=== PATIENT | male | born 1935 | race Caucasian/White ===

== ENCOUNTER 2017-02-14 16:21 | Inpatient (IN) | payer BC ==
--- NOTE | ~2017-02-14 | OP ---
Record Of Operation [facility] [address] [place]. [address] NAME: BAILEE RAYA JR : 37 STATUS : ADM IN PAT#: [id number] AGE: 81 ADM/REG DATE : 02/14/17 MR#: [id number] REPORT SERV DATE: 02/16/17 DICTATED BY: VAISHALI HARRISON DATE: 02/16/17 REPORT STATUS : Draft TRANSCRIBED BY: MODL DATE: 02/16/17 DATE OF PROCEDURE: 02/15/2017 PREOPERATIVE DIAGNOSIS: Gangrenous cholecystitis. POSTOPERATIVE DIAGNOSIS: Gangrenous cholecystitis. OPERATION: Laparoscopic cholecystectomy. SUMMARY OF FINDINGS: The patient had a very thickened, tense gallbladder that was very friable and appeared frankly gangrenous. He had multiple adhesions present throughout the abdomen. He had a very scarred-appearing liver, both right and left lobes. SUMMARY: After adequate general anesthesia, prep and drape, a supraumbilical incision was made, carried down through the skin and subcutaneous tissue, and down the peritoneal cavity. Under direct vision, blunt port was placed, and the camera was inserted. The previously noted findings were noted. A 2nd, 3rd, and 4th trocars were placed under direct vision in the epigastric area, midclavicular line, and right anterior axillary line. The lateral two ports were used to mobilize the gallbladder, which was noted to be very thickened. This was aspirated with approximately 60 mL to facilitate grasping. A 4th trocar was then placed inferiorly on the right to insert a fan to pull the transverse colon inferiorly for visualization. Careful dissection was used. The gallbladder appeared very necrotic and very thick walled. The cystic duct was identified. Two clips were placed proximally and one distally on the cystic duct. A small vessel was then clipped, two proximally, one distally, and these were divided. A small branch of the cystic artery was then clipped and the gallbladder was taken out retrograde fashion leaving the posterior wall of the gallbladder. This was noted to be very friable because of the cirrhosis apparent. The gallbladder was taken out in pieces and placed in an Endopouch. The gallbladder bed was then cauterized and Kiana was then placed over this. Good hemostasis was obtained. The lateral drain was placed out through a lateral trocar site and sutured in place with a 2-0 Prolene suture. The fan was removed. The other trocars removed under direct vision. No evidence of any bleeding. The gallbladder having been brought out through the fan site. The CO2 was removed from the abdomen. The fascia was closed at the supraumbilical site with a running 0 Vicryl suture. Subcutaneous tissue and skin closed in routine fashion. The patient tolerates the procedure well and was taken to the ICU in stable condition. CA/ENRIKE Vaishali Harrison M.D. / [id number] CC: Record Of Operation [address] [address] NAME: BAILEE RAYA : 37 STATUS : ADM IN [facility]#: [id number] AGE: 81 ADM/REG DATE : 02/14/17 MR#: [id number] REPORT SERV DATE: 02/16/17 DICTATED BY: VAISHALI HARRISON DATE: 02/16/17 REPORT STATUS : Draft TRANSCRIBED BY: ENRIKE DATE: 02/16/17 Tiff Craig M.D.
--- NOTE | ~2017-02-14 | CN ---
Consultation Report [facility] [address] [place]. [address] NAME: BAILEE RAYA JR : 37 STATUS : ADM IN PAT#: [id number] AGE: 81 ADM/REG DATE : 02/14/17 MR#: [id number] REPORT SERV DATE: 02/15/17 DICTATED BY: VALE MATTHEWS DATE: 02/15/17 REPORT STATUS : Draft TRANSCRIBED BY: MODAdonis DATE: 02/15/17 DATE OF CONSULTATION: HISTORY OF PRESENT ILLNESS: This is a 81-year-old patient who is status post laparoscopic cholecystectomy for acute cholecystitis and we are asked to see the patient for postoperative management. The patient was admitted to the hospital on after initially developed back pain that migrated to the right lower quadrant. He was advised to go to the emergency room for further evaluation. The patient has a known history of peripheral vascular disease as well as triple A repair, and is on Xarelto as an outpatient. After further evaluation by surgery the plan was to stabilize the patient and do a laparoscopic cholecystectomy if possible. He also had associated discomfort, nausea, fevers, and chills prior to admission, and temperature was a 102. Blood cultures thus far are negative. Urinalysis is unremarkable for acute UTI. The patient currently on Zosyn. He was cleared for surgery by [facility] Cardiology which was consulted secondary to intermittent SVT. After evaluation by Cardiology the patient discontinued his atenolol, started him on Coreg, and has ordered an echocardiogram that is pending. So the patient was able to undergo his laparoscopic cholecystectomy with an estimated blood loss of 75 mL. He is currently extubated on room air. Has peripheral IVs and is in no apparent distress. ALLERGIES: HE HAS NO KNOWN DRUG ALLERGIES. HOME MEDICATIONS: Include allopurinol, Tenormin, Tylenol, Lipitor, cholestyramine, TriCor, Glucophage, Prilosec, and Xarelto. PAST MEDICAL HISTORY: 1. Significant for peripheral vascular disease status post balloon angioplasty of the proximal left femoropopliteal graft 2 years ago. 2. 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 3. History of hypertension. 4. Hyperlipidemia. 5. Type 2 diabetes mellitus. FAMILY HISTORY: Significant for coronary artery disease. SOCIAL HISTORY: The patient lives at home with his . He is a retired [employer] of a [employer] at [place] and has two children. He has remote history of smoking and there is no history of any alcohol abuse or illicit drug use. REVIEW OF SYSTEMS: Currently, the patient denies any nausea, vomiting, chest pain, slight abdominal discomfort at the surgical site. He has had no PND, orthopnea, or significant leg swelling; and the remainder of a 10-point review of systems is unremarkable. PHYSICAL EXAMINATION: VITAL SIGNS: Heart rate is 81, blood pressure 130/60, room air sat 97%, respiratory rate is Consultation Report [address] [address] NAME: BAILEE RAYA JR : 37 STATUS : ADM IN [facility]#: [id number] AGE: 81 ADM/REG DATE : 02/14/17 MR#: [id number] REPORT SERV DATE: 02/15/17 DICTATED BY: VALE MATTHEWS DATE: 02/15/17 REPORT STATUS : Draft TRANSCRIBED BY: ENRIKE DATE: 02/15/17 22, temperature is 98.6. SKIN: Warm and dry. HEENT: Head is atraumatic and normocephalic. Pupils are equal, round, and reactive to light and accommodation. Extraocular eye movements are intact. Sclerae anicteric. Conjunctivae pink. Nasal mucosa is within normal limits. Oral mucosa is moist. Tongue is midline. NECK: Supple without JVD, lymphadenopathy, or thyromegaly. LUNG: Notable for minimally decreased breath sounds. Equal bilateral chest excursion. No chest deformities. CARDIAC: Reveals a regular rate and rhythm with no significant murmurs. No current chest x-ray. Electrolytes: Sodium 131, potassium 3.7, chloride 99, bicarb 22, BUN 19, creatinine 1.0, glucose 103, calcium 7.9, magnesium 2.1. Phosphorus 2.5. White cell count is 11.5, hemoglobin 12, hematocrit is 36, platelet count is a 100. Lactic acid level yesterday was 5.4, procalcitonin was 2.14. ASSESSMENT AND PLAN: 1. This is a 81-year-old patient who presents with acute cholecystitis status post laparoscopic cholecystectomy currently extubated and is in stable condition. He will be observed overnight in the ICU with Zosyn continued for 3 more doses as per Surgery. Blood cultures are pending. 2. History of triple A repair and peripheral vascular disease. Restart Xarelto as per Surgery. 3. Deep vein thrombosis prophylaxis will be with subcutaneous heparin. 4. Thrombocytopenia is noted and platelet count initially on admission was 109. This could be related to sepsis and possibly Zosyn. We will continue to monitor closely. The patient is on Protonix which should not affect his platelet count. 5. Supraventricular tachycardia. The patient being followed by [facility] Cardiology. Currently, on Coreg. Echocardiogram pending. 6. Metabolic and lactic acidosis. Check a lactic acid level in the morning along with BMP. 7. Type 2 diabetes mellitus. Sliding insulin scale until such time that the patient is taking a full liquid diet. We will follow the patient with you. Thank you for your consultation. MELECIO/ENRIKE Vale Matthews M.D. / [id number] CC: Consultation Report [address] [address] NAME: BAILEE RAYA : 37 STATUS : ADM IN [facility]#: [id number] AGE: 81 ADM/REG DATE : 02/14/17 MR#: [id number] REPORT SERV DATE: 02/15/17 DICTATED BY: VALE MATTHEWS DATE: 02/15/17 REPORT STATUS : Draft TRANSCRIBED BY: ENRIKE DATE: 02/15/17 Opal Plata M.D.
--- NOTE | ~2017-02-14 | DS ---
Discharge Summary [place] [address] [facility] [place]. [address] NAME: BAILEE RAYA JR : 37 STATUS : DIS IN PAT#: [id number] AGE: 81 ADM/REG DATE : 02/14/17 MR#: [id number] REPORT SERV DATE: 03/03/17 DICTATED BY: TRACIE CRAIG DATE: 03/02/17 REPORT STATUS : Draft TRANSCRIBED BY: ENRIKE DATE: 03/02/17 Data Collection from hospitalization DISCHARGE DIAGNOSES: 1. Gangrenous cholecystitis. 2. Hypertension. 3. Diabetes. 4. Peripheral vascular disease. 5. Abdominal aortic aneurysm-status post repair. CONSULTATIONS: Dr. Michelle Matthews, Dr. Michele Davis. PROCEDURES PERFORMED: 1. Laparoscopic cholecystectomy, 02/15/2017. 2. CT scan of the abdomen and pelvis without contrast, 02/14/2017. PATHOLOGY: Gallbladder, cholecystectomy - cholelithiasis - severe acute cholecystitis. MEDICATIONS: Zyloprim 300 mg daily, Lipitor 40 mg daily, Coreg 6.25 mg twice a day, Keflex 250 mg every six hours, Prevalite one packet twice a day, TriCor 48 mg daily, Glucophage 500 mg with breakfast and supper, Prilosec 20 mg daily, Xarelto 20 mg every morning, Ultram 50 mg every six hours as needed. CONDITION AT DISCHARGE: Stable. DISPOSITION: The patient was discharged to home on a mechanical soft diet with activities as instructed. He would follow up with Dr. Michele Davis, 04/13/2017. He would follow up with Dr. Jason Castillo on Wednesday following discharge. HOSPITAL COURSE: This is a 81-year-old man who is on Xarelto for peripheral vascular disease. He presented with 24 hours of initial right upper back progressing to right lower quadrant and right upper quadrant pain. This was acute in onset. He had associated nausea, as well as fevers and chills. He reported having a fever to 102. He denied any emesis. He denied any change to his bowel or bladder habit. He denied any episodes of jaundice. He said he has had never had pain like this before. He was admitted to the hospital for further evaluation and treatment. Upon admission, IV fluids and IV antibiotics were started. He was going to be held n.p.o. at midnight. Xarelto and metformin were held. CT scan of the abdomen and pelvis was significant for inflamed thickened gallbladder with stranding consistent with cholecystitis, gallstones were also present. It was felt that he would likely need to undergo surgical intervention. He was seen in consultation by Dr. Michele Davis for preoperative cardiac clearance and brief supraventricular tachycardia. While here, he had developed an intermittent brief supraventricular tachycardia that was not symptomatic. He denied any chest pain or pressure or exertional symptoms. He had no dizziness or loss of consciousness. White blood cell count was 11.5. Telemetry revealed several runs of brief supraventricular tachycardia. 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 He was currently in a sinus rhythm. It was Discharge Summary [address] [place]. [address] NAME: BAILEE RAYA JR : 37 STATUS : DIS IN PAT#: [id number] AGE: 81 ADM/REG DATE : 02/14/17 MR#: [id number] REPORT SERV DATE: 03/03/17 DICTATED BY: TRACIE CRAIG DATE: 03/02/17 REPORT STATUS : Draft TRANSCRIBED BY: ENRIKE DATE: 03/02/17 recommended that atenolol be discontinued Coreg be started with up titration as tolerated. In addition, it would be helpful to check an echocardiogram. It would be important to continue him on the beta zain as well as to complete his echocardiogram at some point either before or after surgery to get a more definitive assessment of his ventricular and valvular function. Pending the findings of the echocardiogram further workup may be warranted. The following day, the patient was taken to the operating room by Dr. Jason Castillo where he underwent the above-mentioned procedure. He tolerated this well. There were no complications. Postoperatively, he was seen by Dr. Michelle Matthews regarding postoperative management. His blood cultures thus far were negative. Urinalysis was unremarkable for acute urinary tract infection. The patient was currently receiving Zosyn. An echocardiogram was pending. He has currently been extubated and was on room air. He had peripheral IVs and was in no apparent distress. He is going to be observed overnight in the ICU. DVT prophylaxis had been started with subcutaneous heparin. Thrombocytopenia was noted. The platelet count initially on admission was 109. This could be related to sepsis and possibly Zosyn. We would monitor this closely. The patient is on Protonix which should not affect his platelet count. The patient has metabolic and lactic acidosis. Lactic acid level was going to be checked along with the BMP. Sliding scale insulin will be provided until such a time that the patient was tolerating a full-liquid diet. On postop day #1, he was tolerating oral intake. O2 saturation was 94% on 2 L. His pain was controlled. Echocardiogram was performed. Discharge planning was begun. He had no edema. 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 On 02/17/2017, he was tolerating his diet. His abdomen remained soft. Discharge instructions were given. Due to his improved and stable condition, he was discharged to home with the above-stated instructions. Information collected by: Madhavi Carlson I submit the above information as my discharge summary. TG/MODL Tracie Craig M.D. / [id number] CC: Opal Plata M.D. Vimal Ramjee, MD
--- NOTE | ~2017-02-14 | HP ---
History And Physical [place] [id number] [facility] [place]. [address] NAME: BAILEE RAYA JR : 37 STATUS : ADM [facility]#: [id number] AGE: 81 ADM/REG DATE : 02/14/17 MR#: [id number] REPORT SERV DATE: 02/16/17 DICTATED BY: TRACIE CRAIG DATE: 02/15/17 REPORT STATUS : Draft TRANSCRIBED BY: MODAdonis DATE: 02/15/17 DATE OF ADMISSION: 02/14/2017 ATTENDING SURGEON: Tracie Craig M.D. RESIDENT: Dominic Rocha M.D. CHIEF COMPLAINT: Abdominal pain and fever. HISTORY OF PRESENT ILLNESS: This is a 81-year-old male, on Xarelto for peripheral vascular disease, who presented with 24 hours of initial right upper back pain progressing to right lower quadrant and right upper quadrant pain. This was acute in onset. He had associated nausea as well as fevers and chills. He reports fever at home to 102 degrees Fahrenheit. Denies any emesis. Denies any change to his bowel or bladder habits. Denies any episodes of jaundice. He says he has never had pain like this before. Denies any sick contacts. PAST MEDICAL HISTORY: Hypertension, diabetes, peripheral vascular disease, abdominal aortic aneurysm which has been repaired. SURGICAL HISTORY: Open abdominal aortic aneurysm repair, multiple lower extremity vascular interventions including stenting. SOCIAL HISTORY: Denies any alcohol, tobacco, or illicit drug use. ALLERGIES: NONE. HOME MEDICATIONS: Home medicines have been reviewed. Please see electronic reconciliation for the full listing. Pertinent medicines include Xarelto and metformin. FAMILY HISTORY: Hypertension and diabetes. REVIEW OF SYSTEMS: The patient endorses a 40-pound intentional weight loss in the past few months. Denies any chest pain, shortness of breath, weakness, or any other recent symptoms. A full 12-point review of systems was completed with no additional findings. PHYSICAL EXAMINATION: VITAL SIGNS: Temperature 98, blood pressure 155/67, heart rate 92, respirations 18, breathing 96% on room air. GENERAL: This is an elderly white male, in no acute distress. He is alert and oriented x3. CARDIOVASCULAR: Regular rate and rhythm. PULMONARY: Clear to auscultation bilaterally. ABDOMEN: Soft, nondistended. Focally tender to palpation at the right upper quadrant. There is positive Conley's sign. There is some mild rebound. There is no guarding. No diffuse peritonitis. History And Physical [address] [place]. [address] NAME: BAILEE RAYA JR : 37 STATUS : ADM IN PAT#: [id number] AGE: 81 ADM/REG DATE : 02/14/17 MR#: [id number] REPORT SERV DATE: 02/16/17 DICTATED BY: TRACIE CRAIG DATE: 02/15/17 REPORT STATUS : Draft TRANSCRIBED BY: MODAdonis DATE: 02/15/17 LABORATORY DATA: White count 14.9, hematocrit 40.7, platelets 109. Renal panel, sodium is 131, potassium 5.4, chloride 96, bicarbonate 22, BUN 22, creatinine 1.37, and glucose is 94. Urinalysis is positive with many white cells. Significant LFTs, T bilirubin is 1.9. Lactate is also elevated at 5.8. Imaging, CT abdomen and pelvis, significant for an inflamed thickened gallbladder with stranding consistent with cholecystitis, also with gallstones present. ASSESSMENT AND PLAN: This is a 81-year-old male, on Xarelto with cholecystitis and acute kidney injury. 1. We will admit to the floor. Start IV fluids. Start IV antibiotics. We will make n.p.o. at midnight. 2. We will hold his Xarelto as well as his metformin. 3. We will repeat CMP and CBC in the morning. 4. We will plan for likely cholecystectomy in approximately 24 hours, as he took his Xarelto this morning. ALESSANDRA/ENRIKE Tracie Craig M.D. / [id number] CC: Tracie Craig M.D.
--- NOTE | ~2017-02-14 | CN ---
Consultation Report [facility] [address] [place]. [address] NAME: BAILEE GANT JR : 39 STATUS : ADM IN [facility]#: [id number] AGE: 81 ADM/REG DATE : 02/14/17 MR#: [id number] REPORT SERV DATE: 02/15/17 DICTATED BY: MICHELE THOMPSON DATE: 02/15/17 REPORT STATUS : Draft TRANSCRIBED BY: MODL DATE: 02/15/17 CONSULTATION DATE OF CONSULTATION: 02/14/2017 REASON FOR CONSULTATION: Preoperative cardiac clearance, brief SVT. HISTORY OF PRESENT ILLNESS: Mr. Gant is a pleasant 81-year-old gentleman with a history of peripheral vascular disease (left femoral-popliteal bypass, on Xarelto), hypertension, hyperlipidemia, diabetes, and repaired AAA, who presents to [facility] with abdominal discomfort, nausea, fevers, and chills, found to have acute cholecystitis, currently awaiting cholecystectomy. While here, he has had intermittent brief SVT, that is not symptomatic. He denies having any chest pains, pressures, exertional symptoms, dizziness or loss of consciousness. He has had no cardiac symptoms whatsoever as far as I am able to discern. He has no complaints at this time. ALLERGIES: NONE. FAMILY HISTORY: Positive for coronary heart disease in his father, who was diagnosed in his 50s and passed in his 70s. SOCIAL HISTORY: The patient lives at home with his and is fully functional and independent under normal circumstances. He has no limitations. Denies drinking alcohol, smoking, or doing drugs. REVIEW OF SYSTEMS: As above, all other systems otherwise negative. PHYSICAL EXAMINATION: VITAL SIGNS: Blood pressure 137/75, pulse 87, temperature 99.8. GENERAL: No acute distress, morbidly obese, pleasant. NEURO: Awake, alert and oriented x3; no focal deficits, appropriate mood. HEENT: Moist mucous membranes, anicteric sclerae, no nasal discharge. NECK: No JVD, no carotid bruit. LUNGS: Clear to auscultation bilaterally, no wheezes, rales or rhonchi. CV: Regular rhythm, normal S1/S2, no murmurs, rubs or gallops. ABDOMEN: Mildly tender, no rebound or guarding, positive bowel sounds. EXTREMITIES: Warm, dry, 1+ peripheral pulses in the bilateral legs. SKIN: Warm, dry and intact; no rash. PERTINENT TEST FINDINGS: Potassium 3.7, creatinine 1.0, magnesium 2.1. White blood cell count 11.5, hemoglobin 12.4, platelets 100. Telemetry with several runs of brief SVT. 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 Consultation Report [place] [address] [place]. [address] NAME: BAILEE GANT JR : 39 STATUS : ADM IN PAT#: [id number] AGE: 81 ADM/REG DATE : 02/14/17 MR#: [id number] REPORT SERV DATE: 02/15/17 DICTATED BY: MICHELE THOMPSON DATE: 02/15/17 REPORT STATUS : Draft TRANSCRIBED BY: ENRIKE DATE: 02/15/17 IMPRESSION AND PLAN: Mr. Gant is a pleasant 81-year-old gentleman with a history of hypertension, obesity, hyperlipidemia, peripheral vascular disease, status post left femoral popliteal bypass graft, on Xarelto, who presents with acute cholecystitis, found to have brief supraventricular tachycardia in this setting. He is currently in sinus rhythm. I recommend discontinuation of atenolol, and starting Coreg 6.25 mg p.o. b.i.d., with up titration as tolerated. In addition, it will be helpful to check an echocardiogram. Given his risk factors and his other collective findings, he is in intermediate risk substrate for an intermediate risk surgery. This has been fully disclosed to him. It will be important to continue him on a beta-zain as well as to complete his echocardiogram at some point, either before or after surgery to get a more definitive assessment of his ventricular and valvular function. Pending the findings of the echocardiogram, further workup may be warranted. JOY/ENRIKE Michele Thompson MD / [id number] CC: Opal Plata M.D.
[2017-02-14 15:03] LABS: ASCORBIC ACID (UR NOT ORDER) NEG (NEG); BILIRUBIN, URINE NEGATIVE (NEG); ER URINALYSIS TAT 0 Hrs 09 Mins; KETONE, URINE NEGATIVE (NEG); LEUKOCYTE ESTERASE(NOT OR NEG (NEG); NITRITE (URINE) NEG (NEG); WBC (NOT ORDERED) (RFLEX) 20 (0-5)
[2017-02-14 15:58] LABS: BASOPHILS 0.1 %; BASOPHILS ABSOLUTE 0.02 10/3/uL (0.0-0.16); EOSINOPHILS 0 %; HEMATOCRIT 40.7 % (40.0-51.0); HEMOGLOBIN 13.6 g/dL (13.6-17.8); IMMATURE GRANULOCYTES 0.7 %; LYMPHOCYTES 4.8 %; LYMPHOCYTES ABSOLUTE 0.72 10/3/uL (0.67-4.30); MEAN CORPUS HGB CONC 33.4 g/dL (32.0-36.0); MEAN CORPUSCULAR HEMOGLOB 30.4 pg (26.0-34.0); MEAN CORPUSCULAR VOLUME 91.1 fL (80-100); MEAN PLATELET VOLUME 9.3 fL (9.2-13.0); MONOCYTES 5.5 %; MONOCYTES ABSOLUTE 0.82 10/3/uL (0.21-1.20); NEUTROPHILS 88.9 %; NEUTROPHILS ABSOLUTE 13.24 10/3/uL (2.02-8.40); PLATELET COUNT 109 10/3/uL (150-400); RBC DISTRIBUTION WIDTH 15.7 % (12.0-16.0); RED CELL COUNT 4.47 10/6/uL (4.7-6.1)
[2017-02-14 15:59] LABS: ER CBC TAT 0 Hrs 11 Mins; MANUAL DIFF NO %; WHITE BLOOD CELLS 14.9 10/3/uL (4.5-10.5)
[2017-02-14 16:15] LABS: ALBUMIN 3.5 G/DL (3.5-5.0); ALKALINE PHOSPHATASE 66 U/L (45-117); CALCIUM, SERUM 8.7 MG/DL (8.5-10.4); CHLORIDE, SERUM 96 MMOL/L (96-112); CREATININE 1.37 MG/DL (0.70-1.30); GFR AFRICAN AMERICAN 56 ML/MIN (>=60); GFR NON AFRICAN AMERICAN 49 ML/MIN (>=60); GLUCOSE, SERUM 94 MG/DL (60-99); SGPT(ALT) 22 U/L (5-65); TOTAL PROTEIN 7.2 G/DL (6.0-8.5)
[2017-02-14 16:19] LABS: LACTATE 5.8 MMOL/L (0.3-2.4)
[2017-02-14 16:20] LABS: SODIUM, SERUM 131 MMOL/L (135-148)
[2017-02-14 16:21] LABS: A/G RATIO 0.9 (0.7-1.9); BUN (BLOOD UREA NITROGEN) 22 MG/DL (6-23); CO2 (CARBON DIOXIDE) 22 MMOL/L (24-34); GLOBULIN 3.7 G/DL (2.5-4.1); POTASSIUM, SERUM 5.4 MMOL/L (3.5-5.3); SGOT(AST) 58 U/L (5-40); TOTAL BILIRUBIN 1.9 MG/DL (0-1.2)
[~2017-02-14 16:21] MED LIST: AMB10 PO; ASAB PO; ATEN25 PO; C5 PO; COUMADIN10 MG PO; COUMADIN7.5 MG PO; FISH-EPA1000 MG PO; KRILL OIL PO; LIPITOR40 PO; LORT7 PO; LOVENOX1C SC; LOVENOX80 SC; MULTIPLE VIT PO; NIACIN 500 PO; PRILO PO; TRILIPIX135 MG PO; TRILIPIX45 MG PO; TYLENOL PM PO; XARELTO20 MG PO; Z300 PO
[2017-02-14] MEDS ORDERED: Z300 PO (16:25)
[2017-02-14] MEDS ORDERED: ATEN25 PO (16:26)
[2017-02-14] MEDS ORDERED: LIPITOR40 PO (16:26)
[2017-02-14] MEDS ORDERED: TRICOR48 PO (16:26)
[2017-02-14] MEDS ORDERED: T PO (16:27)
[2017-02-14] MEDS ORDERED: XARELTO20 MG PO (16:27)
[2017-02-14] MEDS ORDERED: PREVALITE4 G1 PO (16:27)
[2017-02-14] MEDS ORDERED: GLUCPH PO (16:27)
[2017-02-14] MEDS ORDERED: PRILO PO (16:28)
[2017-02-14 17:11] LABS: PROCALCITONIN 2.14 ng/mL (<0.5)
[2017-02-15 04:59] LABS: BUN (BLOOD UREA NITROGEN) 19 MG/DL (6-23); CALCIUM, SERUM 7.9 MG/DL (8.5-10.4); CHLORIDE, SERUM 99 MMOL/L (96-112); CO2 (CARBON DIOXIDE) 22 MMOL/L (24-34); GFR AFRICAN AMERICAN 83 ML/MIN (>=60); GFR NON AFRICAN AMERICAN 71 ML/MIN (>=60); GLUCOSE, SERUM 103 MG/DL (60-99); PHOSPHORUS, SERUM 2.5 MG/DL (2.5-4.5); SODIUM, SERUM 131 MMOL/L (135-148)
[2017-02-15 05:04] LABS: POTASSIUM, SERUM 3.7 MMOL/L (3.5-5.3)
[2017-02-15 05:06] LABS: BASOPHILS 0.1 %; BASOPHILS ABSOLUTE 0.01 10/3/uL (0.0-0.16); EOSINOPHILS 0.1 %; EOSINOPHILS ABSOLUTE 0.01 10/3/uL (0.0-0.53); HEMATOCRIT 36.8 % (40.0-51.0); HEMOGLOBIN 12.4 g/dL (13.6-17.8); IMMATURE GRANULOCYTES 0.3 %; IMMATURE GRANULOCYTES ABSOLUTE 0.03 10/3/uL (0.0-0.11); LYMPHOCYTES 7.9 %; LYMPHOCYTES ABSOLUTE 0.91 10/3/uL (0.67-4.30); MEAN CORPUS HGB CONC 33.7 g/dL (32.0-36.0); MEAN CORPUSCULAR HEMOGLOB 30.5 pg (26.0-34.0); MEAN CORPUSCULAR VOLUME 90.4 fL (80-100); MEAN PLATELET VOLUME 9.4 fL (9.2-13.0); MONOCYTES 4.4 %; NEUTROPHILS 87.2 %; NEUTROPHILS ABSOLUTE 10.01 10/3/uL (2.02-8.40); PLATELET COUNT 100 10/3/uL (150-400); RBC DISTRIBUTION WIDTH 15.5 % (12.0-16.0); RED CELL COUNT 4.07 10/6/uL (4.7-6.1); WHITE BLOOD CELLS 11.5 10/3/uL (4.5-10.5)
[2017-02-15 05:07] LABS: MANUAL DIFF NO %
[2017-02-16 05:04] LABS: BASOPHILS 0 %; EOSINOPHILS 0 %; HEMATOCRIT 34.3 % (40.0-51.0); HEMOGLOBIN 11.7 g/dL (13.6-17.8); IMMATURE GRANULOCYTES 0.4 %; IMMATURE GRANULOCYTES ABSOLUTE 0.04 10/3/uL (0.0-0.11); LYMPHOCYTES ABSOLUTE 0.51 10/3/uL (0.67-4.30); MEAN CORPUS HGB CONC 34.1 g/dL (32.0-36.0); MEAN CORPUSCULAR VOLUME 90.7 fL (80-100); MEAN PLATELET VOLUME 9.3 fL (9.2-13.0); MONOCYTES 4.2 %; MONOCYTES ABSOLUTE 0.43 10/3/uL (0.21-1.20); NEUTROPHILS 90.4 %; NEUTROPHILS ABSOLUTE 9.27 10/3/uL (2.02-8.40); PLATELET COUNT 123 10/3/uL (150-400); RBC DISTRIBUTION WIDTH 15.4 % (12.0-16.0); RED CELL COUNT 3.78 10/6/uL (4.7-6.1); WHITE BLOOD CELLS 10.3 10/3/uL (4.5-10.5)
[2017-02-16 05:05] LABS: INTERNATIONAL NORMAL RATI 1.4 UNITS (-); MANUAL DIFF NO %; PROTIME (NOT ORD) 17.2 SEC (12.0-14.5)
[2017-02-16 05:15] LABS: ALKALINE PHOSPHATASE 61 U/L (45-117); BUN (BLOOD UREA NITROGEN) 19 MG/DL (6-23); CALCIUM, SERUM 8.4 MG/DL (8.5-10.4); CHLORIDE, SERUM 100 MMOL/L (96-112); CO2 (CARBON DIOXIDE) 23 MMOL/L (24-34); CREATININE 0.93 MG/DL (0.70-1.30); GFR AFRICAN AMERICAN 90 ML/MIN (>=60); GFR NON AFRICAN AMERICAN 78 ML/MIN (>=60); PHOSPHORUS, SERUM 2.6 MG/DL (2.5-4.5); SGOT(AST) 27 U/L (5-40); SGPT(ALT) 20 U/L (5-65); SODIUM, SERUM 134 MMOL/L (135-148); TOTAL PROTEIN 6.1 G/DL (6.0-8.5)
[2017-02-16 05:17] LABS: A/G RATIO 0.7 (0.7-1.9); ALBUMIN 2.6 G/DL (3.5-5.0); GLOBULIN 3.5 G/DL (2.5-4.1); GLUCOSE, SERUM 196 MG/DL (60-99); POTASSIUM, SERUM 4.6 MMOL/L (3.5-5.3); TOTAL BILIRUBIN 1.1 MG/DL (0-1.2)
[2017-02-17 04:41] LABS: BASOPHILS 0 %; EOSINOPHILS 1.2 %; EOSINOPHILS ABSOLUTE 0.07 10/3/uL (0.0-0.53); HEMATOCRIT 31.8 % (40.0-51.0); HEMOGLOBIN 10.9 g/dL (13.6-17.8); IMMATURE GRANULOCYTES 0.3 %; IMMATURE GRANULOCYTES ABSOLUTE 0.02 10/3/uL (0.0-0.11); LYMPHOCYTES 14.3 %; LYMPHOCYTES ABSOLUTE 0.83 10/3/uL (0.67-4.30); MEAN CORPUS HGB CONC 34.3 g/dL (32.0-36.0); MEAN CORPUSCULAR HEMOGLOB 30.8 pg (26.0-34.0); MEAN CORPUSCULAR VOLUME 89.8 fL (80-100); MEAN PLATELET VOLUME 8.8 fL (9.2-13.0); MONOCYTES 6.4 %; MONOCYTES ABSOLUTE 0.37 10/3/uL (0.21-1.20); NEUTROPHILS 77.8 %; NEUTROPHILS ABSOLUTE 4.51 10/3/uL (2.02-8.40); PLATELET COUNT 114 10/3/uL (150-400); RED CELL COUNT 3.54 10/6/uL (4.7-6.1)
[2017-02-17 04:43] LABS: MANUAL DIFF NO %; WHITE BLOOD CELLS 5.8 10/3/uL (4.5-10.5)
[2017-02-17 04:58] LABS: A/G RATIO 0.8 (0.7-1.9); ALBUMIN 2.5 G/DL (3.5-5.0); ALKALINE PHOSPHATASE 65 U/L (45-117); BUN (BLOOD UREA NITROGEN) 18 MG/DL (6-23); CALCIUM, SERUM 8.4 MG/DL (8.5-10.4); CHLORIDE, SERUM 100 MMOL/L (96-112); CO2 (CARBON DIOXIDE) 24 MMOL/L (24-34); CREATININE 0.74 MG/DL (0.70-1.30); GFR AFRICAN AMERICAN 102 ML/MIN (>=60); GFR NON AFRICAN AMERICAN 88 ML/MIN (>=60); GLOBULIN 3.3 G/DL (2.5-4.1); POTASSIUM, SERUM 3.9 MMOL/L (3.5-5.3); SGOT(AST) 24 U/L (5-40); SGPT(ALT) 21 U/L (5-65); SODIUM, SERUM 131 MMOL/L (135-148); TOTAL BILIRUBIN 0.7 MG/DL (0-1.2); TOTAL PROTEIN 5.8 G/DL (6.0-8.5)
[2017-02-17 05:02] LABS: GLUCOSE, SERUM 98 MG/DL (60-99)
[2017-02-17] MEDS ORDERED: COREG6 PO (09:57)
[2017-02-17] MEDS ORDERED: K250 PO (09:58)
[2017-02-17] MEDS ORDERED: ULTRAM50 PO (09:58)
== END 2017-02-17 10:39 | disposition home or self-care (01) | DRG 418 ==
LOC: ER 16:21 → 4SO 18:42 → SDC/OF 02-15 18:28 → MIC 02-15 19:31 → 2SO 02-16 13:46
PROVIDERS: Emergency Medicine; Internal Medicine Pulmonary Disease; Specialist; Surgery; Surgery Surgical Critical Care
PROC: 0FT44ZZ Resection of Gallbladder, Percutaneous Endoscopic Approach (ICD-10-PCS; principal; 2017-02-15 14:45)
DX: K80.00 Calculus of gallbladder with acute cholecystitis without obstruction (principal); I47.1 Supraventricular tachycardia; E87.2 Acidosis; D69.6 Thrombocytopenia, unspecified; E11.51 Type 2 diabetes mellitus with diabetic peripheral angiopathy without gangrene; K74.60 Unspecified cirrhosis of liver; I10 Essential (primary) hypertension; E78.5 Hyperlipidemia, unspecified; I45.10 Unspecified right bundle-branch block; M10.9 Gout, unspecified; K21.9 Gastro-esophageal reflux disease without esophagitis; M19.90 Unspecified osteoarthritis, unspecified site; Z82.49 Family history of ischemic heart disease and other diseases of the circulatory system; Z79.01 Long term (current) use of anticoagulants; Z87.891 Personal history of nicotine dependence; Z98.890 Other specified postprocedural states
CPT/HCPCS: 74176; 80048; 80053; 81001; 82962; 83605; 83735; 84100; 84145; 85025; 85610; 87040; 87641; 88304; 93005; 96374; 99285; A9270-GY; C8929; J1170; J2370; J2405; J2543; J2710; J3010; J3475; Q9957; Q9967